=== PATIENT | male | born 1960 | race Caucasian/White ===

== ENCOUNTER 2019-02-15 07:08 | Inpatient (IN) ==
[2019-02-15] MEDS ORDERED: ENOXAPARIN 100 MG/ML SYRINGE SUBCUT STA (07:43)
[2019-02-15] MEDS ORDERED: ASPIRIN 325 MG TABLET PO STA (07:43)
[2019-02-15] MEDS ORDERED: NITROGLYCERIN 2% OINT 1 INCH/GM PACK TOP STA (07:43)
[2019-02-15 07:50] LABS: Basophils # 0.1 10*3/uL (0.0-0.2); Basophils % 0.8 % (0.0-0.8); Eosinophils # 0.3 10*3/uL (0.0-0.87); Eosinophils % 4.1 % (0.00-10.9); Hematocrit 45.8 VOL% (42.0-52.0); Hemoglobin 15.5 GM/DL (14.0-18.0); Immature Granulocytes % 0.4 %; Immature Granulocytes Absolute 0.03 #; Lymphocytes # 1.6 10*3/uL (1.4-4.0); Lymphocytes % 22.9 % (21.2-54.2); Mean Corpuscular HGB Conc 33.8 GM/DL (32-36); Mean Platelet Volume 10.1 FL (9.6-12.0); Monocytes % 11.5 % (1.7-12.7); Neutrophils % 60.3 % (38.7-73.9); Platelet Count 203 T/CUMM (130-400); Red Blood Count 5.39 MC/CUMM (3.8-5.5); Red Cell Distribution Width 12.7 % (9.3-17.3); White Blood Count 7.2 T/CUMM (4-12)
[2019-02-15 08:02] LABS: Albumin 3.5 G/DL (3.4-5.0); Bilirubin,Total 0.4 MG/DL (0.2-1.0); Calcium 8.4 MG/DL (8.5-10.1); Osmolality,Calculated 280.3 MOS/KG (273-304); Total Protein 6.3 G/DL (6.4-8.3)
[2019-02-15] MEDS ORDERED: MAGNESIUM SULF RIDER 2 GM in PREMIX 1 EACH IV PRN ×2 (08:24→08:26)
[2019-02-15] MEDS ORDERED: ZALEPLON 5 MG CAPSULE PO PRN (08:24)
[2019-02-15] MEDS ORDERED: MAGNESIUM SULF RIDER 4 GM in PREMIX 1 EACH IV PRN (08:24)
[2019-02-15] MEDS ORDERED: ONDANSETRON 4 MG/2 ML VIAL IV PRN (08:24)
[2019-02-15] MEDS ORDERED: NICOTINE 21 MG/24 HR PATCH TRANSDERM PRN (08:24)
[2019-02-15] MEDS ORDERED: diphenhydrAMINE CAP 25 MG CAPSULE PO PRN (08:24)
[2019-02-15] MEDS ORDERED: guaiFENesin/DM ER 600-30 MG TABLET PO PRN (08:24)
[2019-02-15] MEDS ORDERED: BISACODYL 5 MG TABLET PO PRN (08:24)
[2019-02-15] MEDS ORDERED: DOCUSATE SODIUM 100 MG CAPSULE PO PRN (08:24)
[2019-02-15] MEDS ORDERED: PROMETHAZINE 25 MG TABLET PO PRN (08:24)
[2019-02-15] MEDS ORDERED: METOPROLOL TARTRATE 5 MG/5 ML VIAL IV ONE (08:25)
[2019-02-15] MEDS ORDERED: DIAZEPAM 5 MG TABLET PO ONE (08:26)
[2019-02-15] MEDS ORDERED: diphenhydrAMINE CAP 25 MG CAPSULE PO ONE (08:26)
[2019-02-15] MEDS ORDERED: METOPROLOL TARTRATE 5 MG/5 ML VIAL IV STA (08:38)
[2019-02-15] MEDS: SODIUM CHLORIDE 0.9% 1,000 ML IV SCH ×3 (08:49→17:31)
[2019-02-15 09:01] LABS: Risk Ratio 4.4; VLDL CHOLESTEROL 48.4 MG/DL
[2019-02-15] MEDS: POTASSIUM CHLORIDE RIDER 10 MEQ in PREMIX 1 EACH IV PRN ×2 (09:25→10:43)
[2019-02-15] MEDS: PANTOPRAZOLE 40 MG TABLET PO SCH (09:25)
[2019-02-15 12:24] LABS: Apearance,Urine CLEAR (Clear); Bilirubin,Urine Negative (Negative); Blood, Urine Negative (Negative); Glucose,Urine (UA) Negative (Negative); Ketones,Urine Negative (Negative); Mucus,Urine Occasional /LPF (Occasional); Nitrite,Urine Negative (Negative); Protein,Urine Negative; Urine Color Straw (Yellow); Urine Specific Gravity 1.009 (1.001-1.035); Urine Urobilinogen < 2.0 EU/DL (0.2-1.0); WBC,Urine <1 /HPF (0-6)
[2019-02-15] MEDS ORDERED: LIDOCAINE 1% 20 ML VIAL ONE (14:02)
[2019-02-15] MEDS ORDERED: HEPARIN/NACL 0.9% 2 UNITS/ML 1,000 ML IV ONE (14:02)
[2019-02-15] MEDS ORDERED: MIDAZOLAM 2 MG/2 ML VIAL ONE (14:59)
[2019-02-15] MEDS ORDERED: HYDROmorphone 2 MG/1 ML VIAL ONE (14:59)
[2019-02-15] MEDS ORDERED: BIVALIRUDIN 250 MG VIAL IV ONE (15:49)
[2019-02-15] MEDS ORDERED: diphenhydrAMINE 50 MG/1 ML VIAL ONE (16:00)
[2019-02-15] MEDS ORDERED: ONDANSETRON 4 MG/2 ML VIAL ONE (16:04)
[2019-02-15] MEDS ORDERED: NITROGLYCERIN DRIP 50 MG/250 ML BOTTLE IV ONE (16:09)
[2019-02-15] MEDS ORDERED: TICAGRELOR 90 MG TABLET ONE (16:15)
[2019-02-15] MEDS ORDERED: NITROGLYCERIN SL 0.4 MG TABLET SL PRN (16:22)
[2019-02-15] MEDS: LOSARTAN 50 MG TABLET PO SCH (17:31)
[2019-02-15] MEDS: TICAGRELOR 90 MG TABLET PO SCH (21:07)
[2019-02-16] MEDS: SODIUM CHLORIDE 0.9% 1,000 ML IV SCH ×2 (02:33→09:25)
[2019-02-16 05:08] LABS: Basophils # 0.1 10*3/uL (0.0-0.2); Basophils % 0.6 % (0.0-0.8); Eosinophils # 0.3 10*3/uL (0.0-0.87); Eosinophils % 3.1 % (0.00-10.9); Hematocrit 39.2 VOL% (42.0-52.0); Hemoglobin 13.4 GM/DL (14.0-18.0); Immature Granulocytes % 0.6 %; Immature Granulocytes Absolute 0.05 #; Lymphocytes # 1.5 10*3/uL (1.4-4.0); Lymphocytes % 17.7 % (21.2-54.2); Mean Corpuscular HGB Conc 34.2 GM/DL (32-36); Mean Platelet Volume 10.6 FL (9.6-12.0); Monocytes % 11.4 % (1.7-12.7); Neutrophils % 66.6 % (38.7-73.9); Platelet Count 191 T/CUMM (130-400); Red Blood Count 4.56 MC/CUMM (3.8-5.5); White Blood Count 8.4 T/CUMM (4-12)
[2019-02-16 05:24] LABS: Calcium 7.7 MG/DL (8.5-10.1)
[2019-02-16 05:27] LABS: Albumin 2.8 G/DL (3.4-5.0); Bilirubin,Total 0.8 MG/DL (0.2-1.0); Calcium 7.7 MG/DL (8.5-10.1); Osmolality,Calculated 281.1 MOS/KG (273-304); Total Protein 5.4 G/DL (6.4-8.3)
[2019-02-16] MEDS: ASPIRIN EC 81 MG TABLET PO SCH (08:24)
[2019-02-16] MEDS: ATORVASTATIN 40 MG TABLET PO SCH (08:24)
[2019-02-16] MEDS: TICAGRELOR 90 MG TABLET PO SCH (08:24)
[2019-02-16] MEDS: CARVEDILOL 3.125 MG TABLET PO SCH (08:24)
[2019-02-16] MEDS: LOSARTAN 50 MG TABLET PO SCH (08:25)
[2019-02-16] MEDS: PANTOPRAZOLE 40 MG TABLET PO SCH (08:25)
[2019-02-16] MEDS ORDERED: ACETAMINOPHEN 325 MG TABLET PO PRN (11:03)
[2019-02-17] MEDS: TICAGRELOR 90 MG TABLET PO SCH ×2 (01:06→09:24)
[2019-02-17] MEDS: CARVEDILOL 3.125 MG TABLET PO SCH ×2 (01:06→09:24)
[2019-02-17 08:04] VITALS: BP 141/82
[2019-02-17] MEDS: ASPIRIN EC 81 MG TABLET PO SCH (09:24)
[2019-02-17] MEDS: LOSARTAN 50 MG TABLET PO SCH (09:24)
[2019-02-17] MEDS: PANTOPRAZOLE 40 MG TABLET PO SCH (09:25)
[2019-02-17] MEDS: ATORVASTATIN 40 MG TABLET PO SCH (09:25)
== END 2019-02-17 09:51 | disposition home or self-care (01) | DRG 247 ==
LOC: EDBD → N.ED 07:08 → N.EDINP 07:08 → N.TELEN 11:08
PROVIDERS: ADMIT Internal Medicine Cardiovascular Disease; ATTEND Internal Medicine Cardiovascular Disease
PROC: CLCCHCL (ICD-10-PCS; 2019-02-15 13:45)